=== PATIENT | female | born 1935 | race African-American/Black ===

== ENCOUNTER → 2019-10-25 10:31 | Day surgery (SDC) | payer MEDICARE, MEDICAID ==
[~2019-10-25] VITALS: Ht 160 cm; Wt 65.9 kg
[~2019-10-25 10:31] MED LIST: AGRYLIN0.5 MG PO; ELIQUIS5 MG PO; NAMENDA5 MG PO; NEURONTIN 300300 MG PO; SINGULAIR10 MG PO; SYNTHROID200 MC1 PO; ULTRAM50 MG PO; XANAX0.5 MG PO; ZOLOFT25 MG PO; ZONEGRAN100 MG PO
[2019-10-25 11:18] LABS: APTT 23.4 SECONDS (22.8-39.4); INR 1.07 (0.85-1.17); PROTIME 13.9 SECONDS (11.6-15.0)
[2019-10-25 11:34] LABS: HEMATOCRIT 37.7 % (36.0-48.0); HEMOGLOBIN 11.7 g/dL (12-16); MCV 106.2 fL (80.0-100.0); RBC 3.55 10x6/uL (4.00-5.40); RDW 14.6 % (11.5-14.5); WBC 8.9 10x3/uL (4.8-10.8)
[2019-10-25 12:26] VITALS: BP 96/63; Ht 160 cm; Wt 65.9 kg
--- NOTE | 2019-10-25 13:55 | NUR ---
1345-RECD TO ROOM FROM GI LAB. ALERT, IV PATENT. 1350-DR TORRES IN TO REPORT FINDINGS. DAUGHTER AT BEDSIDE. 1355-TAKING LIQUIDS WITHOUT NAUSEA.
--- NOTE | 2019-10-27 10:07 | OP ---
PATIENT NAME: LESLYE BECERRIL MEDICAL RECORD: [id number] :39 [facility] DATE: SURGEON: JANETT TORRES DO DATE OF OPERATION: 10/25/2019 PROCEDURE: Colonoscopy. INDICATIONS FOR PROCEDURE: Anemia, abnormal weight loss, constipation, personal history of colon cancer in 2000 with a right hemicolectomy and adjuvant chemotherapy, history of colon polyps. SCOPE: Olympus video pediatric colonoscope. MEDICATIONS: Propofol 120 mg IV per anesthesia. WITHDRAWAL TIME: 9 minutes. ESTIMATED BLOOD LOSS: None. COMPLICATIONS: None. FINDINGS AND DESCRIPTION OF PROCEDURE: Informed consent was given. The patient was made comfortable with the above medication. After reaching an adequate level of sedation by slow IV push, the patient was placed on her left side. A digital rectal examination was performed and was normal. The endoscope was then advanced under direct visualization through the rectum to the cecum/prior anastomosis. The endoscope briefly intubated the terminal ileum. The endoscope was slowly withdrawn and mucosa was carefully examined. The prep quality was good. There were no polyps visualized on today's examination. There was evidence of [id number] diverticulosis involving the distal descending and sigmoid colon. There was no evidence of diverticulitis. Retroflexion was performed within the rectum with visualization of grade I internal hemorrhoids without bleeding. The endoscope was withdrawn from the patient. The patient tolerated the procedure well and there were no complications. IMPRESSION: 1. Moderate to severe diverticulosis of the distal descending and sigmoid colon. 2. Grade I internal hemorrhoids without bleeding. 3. Otherwise, normal colonoscopy with evidence of a prior surgery. PLAN AND RECOMMENDATIONS: 1. Discharge home when recovery parameters are met. 2. High fiber diet. 3. Consider supplementing diet with 1 tablespoon of Metamucil daily. 4. Okay to use as needed MiraLax once to twice daily as directed on bottle, indefinitely for constipation. 5. No further colonoscopies based on the patient's age and the fact that no polyps were removed on today's examination. 6. Follow up in GI clinic as needed. TRANSINT:[id number] Voice Confirmation ID: [id number] DOCUMENT ID: [id number] OPERATIVE REPORT [id number] LESLYE BECERRIL JANETT TORRES DO at [employer] CC: [id number] DICTATION DATE: 10/25/19 1339 [employer] REPAIRER: 10/25/19 1456 [facility] 10/25/19 [place] [id number] [place] [id number]
== END | disposition home or self-care (01) ==
LOC: D.OPS 10:31
PROVIDERS: Anesthesiology; ATTEND Internal Medicine Gastroenterology
DX: D64.9 Anemia, unspecified (principal); R63.4 Abnormal weight loss; K59.00 Constipation, unspecified; Z85.038 Personal history of other malignant neoplasm of large intestine; Z86.010 Personal history of colon polyps; K57.30 Diverticulosis of large intestine without perforation or abscess without bleeding; K64.0 First degree hemorrhoids; J45.909 Unspecified asthma, uncomplicated

== ENCOUNTER → 2020-11-11 17:06 | Outpatient (CLI) | payer MEDICARE, MEDICAID ==
[2019-10-25 12:26] VITALS: BMI 25.7
[2020-11-11 17:59] LABS: BASOPHILS 0.3 % (0-2); HEMATOCRIT 41.3 % (36.0-48.0); HEMOGLOBIN 13.5 g/dL (12-16); LYMPHOCYTES 26.9 % (15-50); MCH 33.9 pg (26.0-34.0); MCHC 32.8 g/dL (31.0-37.0); MCV 103.5 fL (80.0-100.0); MEAN PLATELET VOLUME 7.8 fL (7.4-10.4); MONOCYTES 11.3 % (2-11); NEUTROPHILS 60.5 % (40-80); PLATELET COUNT 426 10x3/uL (130-400); RBC 3.99 10x6/uL (4.00-5.40); RDW 13.5 % (11.5-14.5); WBC 5.5 10x3/uL (4.8-10.8)
[2020-11-11 18:01] LABS: BILIRUBIN NEGATIVE (NEGATIVE); KETONE NEGATIVE (NEGATIVE); NITRITE NEGATIVE (NEGATIVE); UROBILINOGEN NORMAL mg/dL (< 2)
[2020-11-11 18:02] LABS: WHITE CELLS - URINE >50 HPF (0-4)
[2020-11-11 18:03] LABS: BACTERIA FEW HPF (NONE SEEN); SQUAMOUS EPITHELIAL 0-5 HPF (0-4)
[2020-11-11 18:15] LABS: ALBUMIN 3.4 g/dL (3.4-5.0); ANION GAP 14.9 mmol/L (8-16); BILIRUBIN - TOTAL 0.4 mg/dL (0.2-1.3); CALCIUM 8.9 mg/dL (8.5-10.1); CARBON DIOXIDE 23.4 mmol/L (21.0-32.0); POTASSIUM - SERUM 3.3 mmol/L (3.5-5.1); PROTEIN - SERUM 7.6 g/dL (6.4-8.2)
== END | disposition home or self-care (01) ==
LOC: D.LABREF 17:06
DX: N39.0 Urinary tract infection, site not specified (principal); W19.XXXA Unspecified fall, initial encounter; R41.0 Disorientation, unspecified